=== PATIENT | female | born 1995 | race Caucasian/White ===

== ENCOUNTER → 2019-04-24 | Outpatient (CLI) | payer OTHER ==
--- NOTE | 2019-04-24 16:37 | RADIOLOGY REPORT (SQ) ---
EXAM DESCRIPTION: U/S OB 14+ TRNABD 1GES W/O DOP COMPLETED DATE/TIME: 04/24/2019 4:21 pm REASON FOR STUDY: ANATOMY SCAN COMPARISON: None. TECHNIQUE: Static and Dynamic grayscale imaging performed of gravid uterus using transabdominal appr oac. Additional selected color Doppler and spectral images recorded. All stored on PACS. LIMITATIONS: None. FINDINGS: FETUSES SEEN:2 EGA: 21 weeks 6 days Calculated using BPD,FL,HC,AC documented on images. No discrepancy with clinica l dates. NAHID: 08/29/2019 EFW: Baby A: 452 Grams. Baby B: 461 g. PERCENTILE: Not calculated LVP: Baby A: 3.8 cm. Baby B: 3.8 cm. PLACENTA: Baby A; anterior. Baby B: Posterior. Grade 1 PRESENTATION: Baby A: Cephalic. Baby B: Transverse. ANATOMY: BABY A HEART RATE: 165 beats per minute. FOUR CHAMBER HEART: Visualized. THREE VESSEL CORD: Yes. CORD INSERTION: Visualized. KIDNEYS AND BLADDER: Visualized. Appear normal. STOMACH: Visualized. Appears normal. SPINE: Normal as visualized. BRAIN AND LATERAL VENTRICLES: Cerebellum and cisterna magna are not seen. Ventricles are normal. OTHER: No other significant finding. ANATOMY: BABY B HEART RATE: 145 beats per minute. FOUR CHAMBER HEART: Visualized. THREE VESSEL CORD: Yes. CORD INSERTION: Visualized. KIDNEYS AND BLADDER: Kidneys appear normal. Bladder is not seen. STOMACH: Visualized. Appears normal. SPINE: Normal as visualized. BRAIN AND LATERAL VENTRICLES: Visualized. Appear normal. OTHER: No other significant finding. MATERNAL ADNEXA: Maternal ovaries not visualized. CERVICAL LENGTH: 4 cm. Closed. OTHER: No other significant finding. IMPRESSION: Living twin gestation of 21 weeks 6 days. No anomalies. Structures in the head o f baby A are not as well seen. The bladder of baby B is not seen. Trimester of : Second trimester - 13 weeks 1 day to 27 weeks 6 days. TECHNICAL DOCUMENTATION: JOB ID: [id number] [employer]- All Rights Reserved Reading location - IP/workstation name: [email or web address]
== END ==
LOC: RAD 14:36
PROVIDERS: ATTEND Specialist/Technologist Athletic Trainer
DX: O30.002 Twin pregnancy, unspecified number of placenta and unspecified number of amniotic sacs, second trimester (principal); Z3A.21 21 weeks gestation of pregnancy
CPT/HCPCS: 76805